=== PATIENT | female | born 1980 | race Caucasian/White ===

== ENCOUNTER 2022-02-11 18:10 | Inpatient (IN) | payer OTHER, SELFPAY ==
[~2022-02-11] VITALS: Ht 167.6 cm; Wt 136.5 kg
--- NOTE | 2022-02-11 18:12 | NUR ---
NATALIE JEREZ, VIA GURNEY TO BED 02.
--- NOTE | 2022-02-11 18:15 | NUR ---
NOHEMI SILVESTRE COLLECTED AND HANDED TO STAVE AND BOLT EQUALIZER BEDSIDE
--- NOTE | 2022-02-11 18:20 | NUR ---
LAB BEDSIDE COLLECTING BLOODWORK
[2022-02-11] MEDS ORDERED: NACL 0.9% 2,000 ML IV SCH (18:30)
[2022-02-11 18:37] VITALS: BP 64/46
--- NOTE | 2022-02-11 18:42 | NUR ---
ABG ATTEMPT X2 UNSUCCESSFUL POSSIBLY DUE TO HYPOTENSION WILL ATTEMPT AT A LATER TIME ED DR FITZPATRICK
--- NOTE | 2022-02-11 18:55 | NUR ---
41 Y/O FEMALE TRACHEA TO RA MATEO FROM [facility] [place] C/O RAPID HEART RATE X1DAY. PER EMT AND FIRE STAFF IN [facility] [place] STATED PT HAD SOME CHEST DISCOMFORT, AND LOW BLOOD PRESSURE. DENIES FEVER/CHILLS. DENIES N/V/D. PMH: ACUTE RESPIRATORY FAILURE, BIPOLAR, DM, GERD, HTN, CDIFF ALLERGIES: LATEX, RUBBER, PNC, SULFA
[2022-02-11 18:58] LABS: BASOPHILS % (AUTO) 0.1 % (0.0-2.0); HEMATOCRIT 36.1 % (36-48); HEMOGLOBIN 11.6 g/dL (12.0-16.0); LYMPHOCYTES # (AUTO) 1.2 K/uL (2.5-16.5); LYMPHOCYTES % (AUTO) 7.2 % (20.5-51.1); MEAN CORPUSCULAR HEMOGLOBIN 26 pg (27-31); MEAN CORPUSCULAR HGB CONC 32 g/dL (33-37); MEAN CORPUSCULAR VOLUME 82.1 fL (80-94); MONOCYTES # (AUTO) 0.6 K/uL (0.8-1.0); MONOCYTES % (AUTO) 3.9 % (1.7-9.3); NEUTROPHILS # (AUTO) 14.7 K/uL (1.8-7.7); NEUTROPHILS % (AUTO) 88.8 % (42.2-75.2); PLATELET COUNT (AUTO) 407 K/uL (140-450); RED CELL DISTRIBUTION WIDTH 14.3 % (11.6-13.7); WHITE BLOOD COUNT (AUTO) 16.6 K/uL (4.8-10.8)
[2022-02-11] MEDS ORDERED: METO50TE2 GT (19:03)
[2022-02-11] MEDS ORDERED: LIP80 GT (19:03)
[2022-02-11] MEDS ORDERED: ACET-2619 GT (19:03)
[2022-02-11] MEDS ORDERED: APIX5TAB GT (19:03)
[2022-02-11] MEDS ORDERED: ASPI-1205 GT (19:03)
[2022-02-11] MEDS ORDERED: FAMO-90 GT (19:03)
[2022-02-11] MEDS ORDERED: OLAN2.5T40 GT (19:03)
[2022-02-11] MEDS ORDERED: METF-1243 GT (19:03)
--- NOTE | 2022-02-11 19:03 | NUR ---
MED REC COMPLETED FOR PATIENT
--- NOTE | 2022-02-11 19:10 | NUR ---
REPORT RECEIVED FROM CLEVELAND NICHOLE. CONTINUITY OF PT CARE AT THIS TIME.
--- NOTE | 2022-02-11 19:14 | NUR ---
Pt report given to CLEVELAND SAVAGE. Transfer of care at this time.
[2022-02-11 19:23] LABS: ALBUMIN 2.3 g/dL (3.4-5.0); ANION GAP 17.5 (8-16); CARBON DIOXIDE 23.8 mmol/L (21-32); POTASSIUM 4.3 mmol/L (3.5-5.1); TOTAL BILIRUBIN 0.7 mg/dL (0.0-1.0)
[2022-02-11] MEDS: PIPERACILLIN/TAZOBACTAM 3.375 GM in DEXTROSE 5% 50 ML IV ONE ×2 (19:25→19:53)
[2022-02-11] MEDS ORDERED: VANCOMYCIN 1,000 MG in DEXTROSE 5% 250 ML IV ONE (19:25)
--- NOTE | 2022-02-11 19:39 | NUR ---
PT LAYING IN BED LOCKED IN LOWEST POSITION W X2 SIDERAILS UP FOR PT SAFETY. PT AWAKE AND ALERT GIVES THUMBS UP WHEN ASKED IF OK, PT HAS TRACH OPEN TO AIR W AEROSOL MIST W MASK AT 6L O2 SAT 99%, PT W UNSTABLE VSS ON MONITOR (ERMD AWARE), PT HAS G TUBE, 20 G TO L WRIST W NS BOLUSES RUNING, IV SITE INTACT AND PATENT. WILL CONTINUE TO MONITOR.
[2022-02-11] MEDS ORDERED: NOREPINEPHRINE 4 MG/4 ML VIAL IV ONE (19:40)
[2022-02-11] MEDS ORDERED: NOREPINEPHRINE 4 MG in DEXTROSE 5% 250 ML IV ONE (19:40)
--- NOTE | 2022-02-11 19:40 | NUR ---
NS BOLUSES STARTED BY AM NURSE, CURRENTLY 1200CC INFUSED.
[2022-02-11] MEDS ORDERED: PIPERACILLIN/TAZOBACTAM 3.375 GM VIAL IV ONE (19:50)
--- NOTE | 2022-02-11 19:50 | NUR ---
PER ERMD HOLD LEVOPHED UNTIL AFTER 2000CC BOLUSES ARE FINISHED.
[2022-02-11] MEDS ORDERED: VANCOMYCIN 1,000 MG VIAL ONE (20:03)
[2022-02-11] MEDS ORDERED: LEVOFLOXACIN 750 MG/D5W PREMIX 150 ML IV ONE (20:20)
--- NOTE | 2022-02-11 20:25 | NUR ---
CENTRAL LINE CONSENT OBTAINED FROM PT MOTHER BOLA LOCKE.
--- NOTE | 2022-02-11 20:45 | NUR ---
PT BP 105/41, PER ERMD OK TO HOLD OF ON LEVOPHED UNTIL CENTRAL LINE IS IN PLACE. CONTINUE TO MONITOR BP.
[2022-02-11] MEDS ORDERED: AZTREONAM 2,000 MG in DEXTROSE 5% 100 ML IV SCH (21:00)
--- NOTE | 2022-02-11 21:03 | NUR ---
PT REPOSITIONED FOR COMFORT.
[2022-02-11 21:07] LABS: APPEARANCE,URINE CLEAR (CLEAR); BILIRUBIN,URINE 2+ (NEGATIVE); BLOOD, URINE TRACE-I (NEGATIVE); COLOR,URINE YELLOW (YELLOW); LEUKOCYTE ESTERASE ,URINE NEGATIVE (NEGATIVE); NITRITE, URINE NEGATIVE (NEGATIVE); PH,URINE 5.5 (5.0-9.0); UGLUCOSE NEGATIVE (NEGATIVE)
[2022-02-11 21:15] LABS: WBC,URINE 0-5 /HPF (0-5)
[2022-02-11] MEDS ORDERED: LORazepam 2 MG/ML VIAL IVP STA (21:44)
[2022-02-11] MEDS ORDERED: LORazepam 2 MG/ML VIAL ONE (21:49)
[2022-02-11 22:10] LABS: PROTHROMBIN TIME 12.1 secs (10.8-13.4)
--- NOTE | 2022-02-11 22:21 | NUR ---
ERMD AT BEDSIDE FOR CENTRAL LINE.
--- NOTE | 2022-02-11 22:38 | NUR ---
R IJ CENTRAL LINE INSERTED BY GAVIN GRESHAM.
--- NOTE | 2022-02-11 22:44 | NUR ---
PER GAVIN CENTRAL LINE OK FOR USE. Addendum: 02/11/22 at 2244 by ROSA GAVIN VERIFIED CENTRAL LINE PLACEMENT.
[2022-02-11] MEDS: NACL 0.9% 1,000 ML IV SCH (22:55)
[2022-02-11] MEDS ORDERED: AZTREONAM 1,000 MG VIAL ONE (23:02)
--- NOTE | 2022-02-11 23:11 | NUR ---
ERMD SIN AWARE PT HR FLUCTUATES TO 160s PER ERMD HR OK BECAUSE IT IS SINUS TACH, NO NEW ORDERS FOR HR.
[2022-02-12] VITALS (21 sets, daily range): BP systolic 96–139; BP diastolic 50–76
--- NOTE | 2022-02-12 00:30 | NUR ---
Patient will be admitted to care of . Admited to ICU. Will go to room ICU 1. Belongings list completed. Report to CLEVELAND MOCK.
--- NOTE | 2022-02-12 00:40 | NUR ---
ADMITTED THIS 41 YEAR OLD FEMALE PATIENT FROM ER PER [facility] DUE TO HYPOTENSION. ASSISTED PATIENT IN BED 1; HOOKED TO CHIEF OF PLANNING. SCOPE SHOWS ON SINUS TACHY HR 146/MIN NO ARRHYTHMIAS SEEN. PATIENT IS AWAKE, ALERT BUT SOMEWHAT RESTLESS. WITH TRACHEOSTOMY IN PLACE TO 28% COOL AEROSOL SO2 99%. IVF IN PROGRESS NORMAL SALINE AT 125 ML/HR AND ON LEVOPHED DRIP AT 4 MCG/MIN VIA CENTRAL LINE TO RIGHT INTERNAL JUGULAR; PATENT AND INTACT. ABDOMEN IS SOFT, VERY OBESE, ACTIVE BOWEL SOUNDS. NOTED WITH REDNESS AND SLIGHT EXCORIATED SKIN ON BOTH GROIN.
--- NOTE | 2022-02-12 01:50 | NUR ---
WITH PERSISTENT NON PRODUCTIVE COUGH NOTED AND TEMP 100.9F COLD SPONGE DONE; REFERRED TO DR. TAM; WITH NEW ORDERS, CARRIED OUT.
--- NOTE | 2022-02-12 04:30 | NUR ---
TEMP GOES UP TO 101.5; CONTINOUS COLD SPONGE DONE; REFERRED AGAIN TO DR. TAM; WITH NEW ORDER, CARRIED OUT.
[2022-02-12] MEDS ORDERED: ALBUTEROL SULFATE/IPRATROPIU 3 ML SOL IH PRN (04:50)
[2022-02-12] MEDS: NACL 0.9% 1,000 ML IV SCH ×3 (05:00→21:00)
[2022-02-12 05:42] LABS: HEMATOCRIT 32.2 % (36-48); HEMOGLOBIN 10.4 g/dL (12.0-16.0); MEAN CORPUSCULAR HEMOGLOBIN 27 pg (27-31); MEAN CORPUSCULAR HGB CONC 32 g/dL (33-37); MEAN CORPUSCULAR VOLUME 82.2 fL (80-94); PLATELET COUNT (AUTO) 369 K/uL (140-450); RED BLOOD CELL COUNT(AUTO) 3.92 MIL/uL (4.20-5.40); RED CELL DISTRIBUTION WIDTH 14.4 % (11.6-13.7); WHITE BLOOD COUNT (AUTO) 13.5 K/uL (4.8-10.8)
[2022-02-12 06:13] LABS: ANION GAP 14.6 (8-16); CARBON DIOXIDE 24.5 mmol/L (21-32); CREATININE 1.5 mg/dL (0.6-1.3); POTASSIUM 4.1 mmol/L (3.5-5.1)
--- NOTE | 2022-02-12 06:30 | NUR ---
LEVOPHED DRIP TAPER AND HOLD PER PROTOCOL.;V/S CONTINUE MONITORING.
[2022-02-12] MEDS ORDERED: ACETAMINOPHEN 325 MG TAB PO PRN ×2 (06:40→09:10)
[2022-02-12] MEDS ORDERED: ACETAMINOPHEN 325 MG TAB ONE (06:43)
--- NOTE | 2022-02-12 07:30 | NUR ---
RECEIVED BEDSIDE REPORT FROM LIBRARY DIRECTOR NURSE, PT RESTING, NO DISTRESS NOTED, AWAKE, APHASIC, UNABLE TO LET NEEDS KNOWN, PT CONFUSED, RESTRAINTS TO RIGHT ARM, NO S/S OF INJURY, PT TRIES TO PULL AND KICK. CENTRAL LINE TO RIGHT IJ TRIPLE LUMEN PATENT INTACT, INFUSING NS @ 125ML/HR, INFUSING WELL, PT ON TRACH TO TBAR WITH MIST 6LPMN O2. PT SATURATING @ 100%, NO SOB NOTED, LUNG SOUNDS DIMINISHED. NOTED PT OCCASIONALLY COUGH WITH SCANT SPUTUM. IV TO LEFT HAND 20G PATENT INTACT, SL. GT IN PLACE, NO RESIDUAL NOTED, CLAMPED PER NPO ORDER. EXTERNAL URINARY DEVICE IN PLACE. NOTED LEAKING THROUGH THE SIDES, WILL REPLACE AND CHANGE PT. INITIAL ASSESSMENT DONE, ALL SAFETY PRECAUTION MET, CALL LIGHT WITHIN REACH, WILL CONTINUE TO MONITOR.
--- NOTE | 2022-02-12 07:30 | NUR ---
DR MOLINA AT BEDSIDE. EVALUATING AND ASSESSING PT.
--- NOTE | 2022-02-12 07:34 | NUR ---
TURNED AND REPOSITIONED PATIENT; V/S MONITORED CLOSELY. Addendum: 02/12/22 at 0736 by Anay Luna RN TIME CHANGED FROM 0735 TO 0300
--- NOTE | 2022-02-12 08:05 | NUR ---
SPUTUM COLLECTED BY RT, SENT TO LAB.
--- NOTE | 2022-02-12 08:06 | NUR ---
RECEIVED ON A COOL AEROSOL AT 28%/6 LPM FUNCTIONING WELL TO AN INLINE SUCTION CATHETER/PORTEX #7 TRACHEOSTOMY TUBE GOOD CHEST RISE DEEP TRACHEAL SUCTION FOR MODERATE THIN YELLOW/GREEN SECRETIONS AIRWAY PATENT SPUTUM SPECIMEN COLLECTED VIA MUCOUS TRAP FORWARDED TO LAB
[2022-02-12] MEDS: LEVOFLOXACIN 500 MG/D5W PREMIX 100 ML IV SCH (08:39)
[2022-02-12] MEDS ORDERED: VANCOMYCIN PER PHARMACY MC PRN (09:05)
[2022-02-12] MEDS ORDERED: SODIUM PHOS / POTASSIUM PHOS 1 PKT PDR PO PRN (09:10)
[2022-02-12] MEDS ORDERED: POTASSIUM CHLORIDE 40 MEQ, LIDOCAINE MPF 1% 25 MG in NACL 0.9% 250 ML IV PRN (09:10)
[2022-02-12] MEDS ORDERED: ONDANSETRON 4 MG/2 ML VIAL IM/IVP PRN (09:10)
[2022-02-12] MEDS ORDERED: MAGNESIUM OXIDE 400 MG TAB GT PRN (09:10)
[2022-02-12] MEDS ORDERED: MORPHINE SULFATE 2 MG/ML SYR IVP PRN (09:10)
[2022-02-12] MEDS ORDERED: HYDROcodone/APAP 5/325 MG 1 TAB TAB PO PRN (09:10)
[2022-02-12] MEDS ORDERED: DOCUSATE 100 MG/10 ML UDC PO PRN (09:15)
[2022-02-12 10:08] LABS: BASOPHILS % (MANUAL) 0 % (0-2); BLASTS, MANUAL % 0 % (0-0); EOSINOPHILS % (MANUAL) 0 % (0-4); LYMPHOCYTES % (MANUAL) 17 % (20-46); METAMYELOCYTES % 1 % (0-0); MONOCYTES % (MANUAL) 6 % (5-12); MYELOCYTES % 0 % (0-0); OTHER CELLS,MANUAL % 0 (0-0); PROMYELOCYTES % 0 % (0-0)
--- NOTE | 2022-02-12 10:20 | NUR ---
DR US AT BEDSIDE ASSESSING PT.
--- NOTE | 2022-02-12 10:23 | NUR ---
SPOKE TO DR US REGARDING PT TEMPERATURE, HAS NOT BEEN DOWN SINCE MORNING, ENTEROSTOMAL THERAPY NURSE NURSE ALREADY GIVEN 1 DOSE OF PO TYLENOL, PER DR TO GIVE 1 DOSE OF IV TYLENOL, WILL CONTINUE WITH ORDERS.
[2022-02-12] MEDS: VANCOMYCIN 750 MG in DEXTROSE 5% 250 ML IV SCH ×2 (10:27→22:36)
[2022-02-12] MEDS ORDERED: ACETAMINOPHEN 100 ML IV SCH (11:00)
--- NOTE | 2022-02-12 11:21 | NUR ---
DC PLANNIN YRS OLD FEMALE PATIENT WAS ADMITTED FROM [facility] [place] WITH A DX OF SEPTIC SHOCK. PATIENT HAS A HX OF CVA. CXR SHOWED LOW LUNG VOLUME RAPID COVID TEST NEGATIVE WBC 16.6 LA 2.5. ON TYLENOL(OFIRMEV) IV , ADMINISTERED IVF, IV ABX VANCOMYCIN AND LEVAQUIN. CONSULTED WITH PULMO AND NEPHRO. DC PLAN TO RETURN TO [facility] WHEN STABLE CM TO FOLLOW Addendum: 02/13/22 at 1457 by Andreia Cornell RN DC PLANNING: SEEN DR RODRIGUEZ JEWEL BEARING MAKER RENAL FUNCTION MUCH IMPROVED GOOD UOP. ANABELA IRVIN CONTINUE IV ABX DC PLAN AWAITING FOR URINE CULTURE. CM TO FOLLOW Addendum: 02/14/22 at 1430 by Andreia Cornell RN DC PLANNING: PER GI REMOVED G-TUBE AND ALLOW FOR HEALING. START TPN. REMAINS CONTINUE VENT SUPPORT HAD FEVER 101.5, CONTINUE MEROPENEM AND VANCO ABX . GI, PULMO AND ID FOLLOWING. DC PLAN TO RETURN TO [facility] WHEN STABLE. CM TO FOLLOW Addendum: 02/17/22 at 1236 by Andreia Cornell RN DC PLANNING: CALLED [facility] SPOKE WITH BRENDAN NOTIFIED HER THAT PATENT NEEDS TPN FOR 2 WEEKS ,PER BRENDAN [facility] CAN CONTINUE TPN. CALLED DR WILSON DISCUSSED THAT TO SEND PATIENT WITH TPN AND WHEN THE WOUND HEELS PATIENT CAN COME OUT PATIENT FOR INSERTION OF G-TUBE. DR WILSON DISCUSSED WITH DR WEST AND PATIENT WILL BE DC TO [facility] WITH TPN. PATIENT CAN GO TO ROOM 20A UNDER THE CARE OF DR JIMENEZ. # TO GIVE REPORT [phone] ARRANGED TRANSPORT WITH [facility] , LOG TUMBLER TIME 3 PM. NOTIFIED JUAN DANIEL GUTHRIE. CM TO FOLLOW
[2022-02-12 11:37] LABS: MAGNESIUM 1.8 mg/dL (1.8-2.4); PHOSPHORUS 3.5 mg/dL (2.5-4.9)
--- NOTE | 2022-02-12 12:29 | NUR ---
SPOKE TO DR US REGARDING PT TUBE FEEDING, PER DR ROGERS TO CONTINUE TUBE FEEDING SAME TYPE AND RATE FROM SENIOR CARE. TUBE FEEDING OSMOLITE 1.5 RUNNING @ 75ML/HR, WITH H2O FLUSH 250ML Q6H. WILL CONTINUE WITH ORDERS.
--- NOTE | 2022-02-12 15:20 | NUR ---
PT TEMPERATURE 100.4, TYLENOL GIVEN PER DR ORDER, NO DISTRESS NOTED, WILL CONTINUE TO MONITOR.
--- NOTE | 2022-02-12 15:30 | NUR ---
TUBE FEEDING STARTED @ 10ML/HR, WILL CONTINUE TO MONITOR.
[2022-02-12] MEDS ORDERED: INSULIN LISPRO SLIDING SCALE 100 UNITS/ML VIAL SUBQ PRN (16:00)
[2022-02-12] MEDS ORDERED: DEXTROSE 50% 50 ML SYR IVP PRN (16:00)
[2022-02-12] MEDS ORDERED: BLOOD GLUCOSE MONITORING 1 DEV DEV FS SCH (16:30)
[2022-02-12] MEDS: BLOOD GLUCOSE MONITORING 1 DEV DEV FS SCH ×2 (17:17→18:00)
--- NOTE | 2022-02-12 17:50 | NUR ---
INFORMED DR US REGARDING RESULT OF KUB, PER TO TAKE OUT THE GT, LET THE SITE HEAL, DR WILL COME TOMORROW TO EVALUATE PT. ALSO NOTIFIED PATIENT FAMILY WANTS TO TALK TO , PER WILL FOLLOW UP. WILL CONTINUE WITH ORDERS.
--- NOTE | 2022-02-12 19:19 | NUR ---
ENDORSED PT TO BUSINESS PROCESS ANALYST NURSE FOR CONTINUOUS OF CARE.
--- NOTE | 2022-02-12 19:25 | NUR ---
RECEIVED REPORT FROM DAYSHIFT RN FOR CONTINUITY OF CARE. PT RESTING IN BED WITH EYES OPEN, UNABLE TO LET NEEDS KNOWN, APPEARS CONFUSED. RESTRAINT TO RIGHT ARM, WITH NO S/S OF INJURY, PT ATTEMPTS TO PULL AND KICK WHEN INTERACTING WITH HER. RIJ CENTRAL LINE ALREADY IN PLACE, PATENT AND INTACT, INFUSING NS @125 ML/HR. IV 20G TO L HAND;PATENT, INTACT, AND SALINE LOCKED. PT TRACH TO TBAR 02 MIST 6L, WITH SATURATION OF 96%. LUNG SOUNDS DIMINISHED, WITH COUGH PRESENT. GT IN PLACE AND CLAMPED. PURE WICK IN PLACE AND CONNECTED TO SUCTION. INITIAL ASSESSMENT COMPLETED. SAFETY PRECAUTIONS IN PLACE. BED IN LOWEST POSITION WITH CALL LIGHT WITHIN REACH. WILL CONTINUE TO MONITOR.
[2022-02-12] MEDS: OLANZapine 2.5 MG TAB GT SCH (20:51)
[2022-02-12] MEDS: CLINDAMYCIN 600 MG in DEXTROSE 5% 50 ML IV SCH (20:51)
[2022-02-12] MEDS: APIXABAN 2.5 MG TAB GT SCH (20:51)
[2022-02-12] MEDS: PANTOPRAZOLE 40 MG INJ VIAL IVP SCH (20:51)
[2022-02-12] MEDS: ATORVASTATIN 80 MG TAB GT SCH (20:51)
[2022-02-12] MEDS ORDERED: FAMOTIDINE 20 MG TAB GT SCH (21:00)
--- NOTE | 2022-02-12 21:30 | NUR ---
TEMP OF 101.9 OBSERVED. COOLING MEASURES IMPLEMENTED; ICE TO HEAD, UNDERARMS, AND JAMIL AREA. WILL CONTINUE TO MONITOR.
[2022-02-12] MEDS: ACETAMINOPHEN 650 MG SUPP RC PRN (23:14)
--- NOTE | 2022-02-12 23:15 | NUR ---
TEMP RE-ASSESSED. STILL ABOVE 101.4. PRN SUPP TYLENOL ADMINISTERED ORDER. CONTINUING WITH COOLING MEASURES. WILL CONTINUE TO MONITOR.
[2022-02-13] VITALS (24 sets, daily range): BP systolic 83–135; BP diastolic 46–84
--- NOTE | 2022-02-13 03:32 | NUR ---
AM CARE, JAMIL CARE, ORAL CARE PROVIDED. PT TURNED AND REPOSITIONED.
[2022-02-13] MEDS: CLINDAMYCIN 600 MG in DEXTROSE 5% 50 ML IV SCH ×2 (04:55→13:17)
[2022-02-13] MEDS: NACL 0.9% 1,000 ML IV SCH (05:28)
[2022-02-13] MEDS: BLOOD GLUCOSE MONITORING 1 DEV DEV FS SCH ×5 (06:00→23:54)
--- NOTE | 2022-02-13 06:24 | NUR ---
BS READING OF 54. PRN ABBOJECT ADMINISTERED ORDERED. WILL CONTINUE TO MONITOR.
[2022-02-13 06:31] LABS: BASOPHILS % (AUTO) 0.2 % (0.0-2.0); EOSINOPHILS # (AUTO) 0.1 K/uL (0-0.4); EOSINOPHILS % (AUTO) 0.8 % (0.0-4.0); HEMATOCRIT 29.2 % (36-48); HEMOGLOBIN 9.5 g/dL (12.0-16.0); LYMPHOCYTES # (AUTO) 1.1 K/uL (2.5-16.5); LYMPHOCYTES % (AUTO) 14.3 % (20.5-51.1); MEAN CORPUSCULAR HEMOGLOBIN 27 pg (27-31); MEAN CORPUSCULAR HGB CONC 33 g/dL (33-37); MEAN CORPUSCULAR VOLUME 81.8 fL (80-94); MONOCYTES # (AUTO) 0.4 K/uL (0.8-1.0); MONOCYTES % (AUTO) 5.2 % (1.7-9.3); NEUTROPHILS # (AUTO) 6.2 K/uL (1.8-7.7); NEUTROPHILS % (AUTO) 79.5 % (42.2-75.2); PLATELET COUNT (AUTO) 314 K/uL (140-450); RED BLOOD CELL COUNT(AUTO) 3.57 MIL/uL (4.20-5.40); RED CELL DISTRIBUTION WIDTH 14.6 % (11.6-13.7); WHITE BLOOD COUNT (AUTO) 7.8 K/uL (4.8-10.8)
[2022-02-13 06:41] LABS: ANION GAP 12.2 (8-16); CARBON DIOXIDE 24.7 mmol/L (21-32); POTASSIUM 3.9 mmol/L (3.5-5.1)
[2022-02-13] MEDS: ACETAMINOPHEN 650 MG SUPP RC PRN (06:55)
--- NOTE | 2022-02-13 06:55 | NUR ---
PT TEMP RE-ASSESSED AT 101.6. PRN SUPP TYLENOL ADMINISTERED ORDERED. PT BLOOD SUGAR RE-ASSESSED, NOW AT 98.
--- NOTE | 2022-02-13 07:14 | NUR ---
GAVE REPORT AT BEDSIDE TODAY SHIFT RN FOR CONTINUITY OF CARE
--- NOTE | 2022-02-13 07:15 | NUR ---
RECEIVED BEDSIDE REPORT FROM SPECIAL EDUCATION PROFESSIONAL NURSE NIA RN. PT SLEEPING, NO DISTRESS NOTED. PT ON TRACH TO TBAR ON 6LPM O2 WITH MIST. CENTRAL LINE TO R IJ TRIPLE LUMEN, PATENT INTACT, INFUSING NS @ 125ML/HR, INFUSING WELL, IV TO LEFT HAND 20G PATENT INTACT, SL. GT IN PLACE, CLAMPED PER EXTERNAL FEMALE URINE DEVICE IN PLACE. INITIAL ASSESSMENT DONE, ALL SAFETY PRECAUTION MET, CALL LIGHT WITHIN REACH, WILL CONTINUE TO MONITOR.
--- NOTE | 2022-02-13 07:59 | NUR ---
PATIENT HAS BEEN SCREENED AND CATEGORIZED HIGH NUTRITION RISK. PATIENT WILL BE SEEN WITHIN 1-2 DAYS OF ADMISSION. 02/13/22 RECEIVED CONSULT AND REFERRAL FOR TUBE FEEDING AND DYSPHAGIA CAROLYN BL[address]
[2022-02-13] MEDS: ASPIRIN 325 MG TAB GT SCH (08:18)
[2022-02-13] MEDS: OLANZapine 2.5 MG TAB GT SCH ×2 (08:19→21:00)
[2022-02-13] MEDS: LEVOFLOXACIN 500 MG/D5W PREMIX 100 ML IV SCH (08:19)
[2022-02-13] MEDS: APIXABAN 2.5 MG TAB GT SCH ×2 (08:20→21:00)
[2022-02-13] MEDS: PANTOPRAZOLE 40 MG INJ VIAL IVP SCH ×2 (08:20→21:25)
[2022-02-13] MEDS: DEXT 5% /NACL 0.9% 1,000 ML IV SCH ×2 (09:21→21:22)
--- NOTE | 2022-02-13 09:21 | NUR ---
MEDICATION ADMINISTERED PT TOLERATED WELL, NO DISTRESS NOTED, WILL CONTINUE TO MONITOR.
[2022-02-13] MEDS: ACETAMINOPHEN 100 ML IV PRN ×3 (10:05→23:53)
[2022-02-13] MEDS: NOREPINEPHRINE 8 MG in DEXTROSE 5% 250 ML IV PRN (10:46)
[2022-02-13] MEDS: VANCOMYCIN 1,000 MG in DEXTROSE 5% 250 ML IV SCH ×2 (10:53→23:18)
--- NOTE | 2022-02-13 10:53 | NUR ---
VANCOMYCIN THROUGH CAME BACK, PHARMACY CHANGED DOSE FOR VANCO, MEDICATION ADMINISTERED, PT TOLERATED WELL, WILL CONTINUE TO MONITOR.
--- NOTE | 2022-02-13 11:04 | NUR ---
DR US AT BEDSIDE EVALUATING PT, PER TO ORDER CONSULT FOR DR. WILSON FOR THE GT.
--- NOTE | 2022-02-13 13:49 | NUR ---
PT RESTLESS, WHEN ASKED IF PT IS HAVING PAIN, PT STATED YES, FLACC -8, MEDICATION PER DR ORDER GIVEN, PT TOLERATED WELL, WILL CONTINUE TO MONITOR.
--- NOTE | 2022-02-13 14:20 | NUR ---
02/13/22 RD INITIAL ASSESSMENT COMPLETED PLEASE REFER TO NUTRITION ASSESSMENT UNDER CARE ACTIVITY FOR ESTIMATED NUTRITIONAL NEEDS. 1. WHEN/IF MEDICALLY APPROPRIATE, RECOMMEND VITAL WITH A GOAL RATE OF 55 ML/HR -FWF: 100 ML Q6H OR PER MD -START AT 10 ML/HR AND INCREASE TOLERATED -WILL PROVIDE 1584 KCAL AND 99 GM PROTEIN, MEETING 90% OF ESTIMATED KCAL AND 100% OF ESTIMATED PROTEIN NEEDS; ADEQUATE 2. MONITOR GASTRIC RESIDUALS AND NUTRITION-RELATED LAB VALUES 3. RD TO FOLLOW-UP 2-3 DAYS, HIGH RISK CAROLYN BLAS RD
--- NOTE | 2022-02-13 14:30 | NUR ---
DR. LOVE RETURN CALL , WILL SEE THE PATIENT TOMORROW .
--- NOTE | 2022-02-13 15:48 | NUR ---
DR MINER AT BEDSIDE EVALUATING PT, PER HE MADE CHANGES TO THE ANTIBIOTICS, ALSO TO ORDER CT ABD PELVIS TO CONFIRM THE GT PLACEMENT. WILL CONTINUE WITH ORDER.
--- NOTE | 2022-02-13 18:00 | NUR ---
NOTIFIED DR US REGARDING THE CT RESULT THAT THE GT IS NO LONGER IN PLACE, WILL CONTINUE TO MONITOR.
--- NOTE | 2022-02-13 18:10 | NUR ---
DR. WILSON AT BEDSIDE, PULLED OUT GT, PER DR TO START TPN AND CHANGE GAUZE ON THE GT SITE ONCE PER SHIFT, WILL CONTINUE WITH ORDERS.
[2022-02-13] MEDS ORDERED: TPN PER PHARMACY MC PRN ×2 (18:25→18:30)
--- NOTE | 2022-02-13 19:18 | NUR ---
ENDORSED PT TO WELFARE ELIGIBILITY WORKER NURSE FOR CONTINUOUS OF CARE.
[2022-02-13] MEDS: ATORVASTATIN 80 MG TAB GT SCH (21:00)
[2022-02-13] MEDS: MEROPENEM 500 MG in NACL 0.9% 50 ML IV SCH (21:24)
--- NOTE | 2022-02-13 22:45 | NUR ---
RECEIVED PATIENT FROM CLEVELAND LYN FOR CONTINUITY OF CARE.
[2022-02-14] VITALS (23 sets, daily range): BP systolic 102–146; BP diastolic 48–93
--- NOTE | 2022-02-14 | NUR ---
FEBRILE 102F RECTALLY; COOLING BLANKET APPLIED; TYLENOL IV GIVEN.
[2022-02-14] MEDS: GAUZE TP SCH ×2 (01:00→13:11)
--- NOTE | 2022-02-14 02:00 | NUR ---
V/S MONITORED CLOSELY; LEVOPHED DRIP REGULATED PER PROTOCOL.
[2022-02-14] MEDS: NOREPINEPHRINE 8 MG in DEXTROSE 5% 250 ML IV PRN (04:30)
--- NOTE | 2022-02-14 04:30 | NUR ---
MORNING BED BATH DONE; KEPT CLEAN AND COMFORTABLE.
[2022-02-14] MEDS: MEROPENEM 500 MG in NACL 0.9% 50 ML IV SCH ×3 (05:00→20:43)
[2022-02-14] MEDS: DEXT 5% /NACL 0.9% 1,000 ML IV SCH (05:30)
[2022-02-14 05:51] LABS: BASOPHILS % (AUTO) 0.3 % (0.0-2.0); EOSINOPHILS # (AUTO) 0.2 K/uL (0-0.4); EOSINOPHILS % (AUTO) 2.3 % (0.0-4.0); HEMATOCRIT 28.9 % (36-48); HEMOGLOBIN 9.6 g/dL (12.0-16.0); LYMPHOCYTES # (AUTO) 1.5 K/uL (2.5-16.5); LYMPHOCYTES % (AUTO) 14.6 % (20.5-51.1); MEAN CORPUSCULAR HEMOGLOBIN 27 pg (27-31); MEAN CORPUSCULAR HGB CONC 33 g/dL (33-37); MONOCYTES # (AUTO) 0.6 K/uL (0.8-1.0); MONOCYTES % (AUTO) 5.8 % (1.7-9.3); NEUTROPHILS # (AUTO) 7.8 K/uL (1.8-7.7); PLATELET COUNT (AUTO) 391 K/uL (140-450); RED BLOOD CELL COUNT(AUTO) 3.53 MIL/uL (4.20-5.40); RED CELL DISTRIBUTION WIDTH 14.8 % (11.6-13.7); WHITE BLOOD COUNT (AUTO) 10.1 K/uL (4.8-10.8)
[2022-02-14 05:52] LABS: MAGNESIUM 1.5 mg/dL (1.8-2.4); PHOSPHORUS 4.3 mg/dL (2.5-4.9)
[2022-02-14] MEDS: BLOOD GLUCOSE MONITORING 1 DEV DEV FS SCH ×3 (06:08→18:54)
[2022-02-14 06:27] LABS: ANION GAP 11.8 (8-16); CARBON DIOXIDE 24.6 mmol/L (21-32); CREATININE 0.9 mg/dL (0.6-1.3); POTASSIUM 3.4 mmol/L (3.5-5.1)
--- NOTE | 2022-02-14 07:20 | NUR ---
Received report from Anay RN and assumed care of patient. Patient resting, cooling mat in place, afebrile. Patient on Levophed 6 mcg/min. D5NS @ 80 ml/hr infusing to triple lumen central line. Will follow plan of care.
--- NOTE | 2022-02-14 07:25 | NUR ---
ENDORSED TO RN CARMEN FOR CONTINUITY OF CARE.
[2022-02-14] MEDS ORDERED: INSULIN LISPRO SLIDING SCALE 100 UNITS/ML VIAL SUBQ PRN (08:35)
--- NOTE | 2022-02-14 08:59 | NUR ---
Dr. Vincent advised the patient has PO meds ordered, but G tube was discontinued. I requested change of route or dc as appropriate and advised him of all the medications. MD responded understanding.
[2022-02-14] MEDS: ASPIRIN 325 MG TAB GT SCH (09:00)
[2022-02-14] MEDS: OLANZapine 2.5 MG TAB GT SCH ×2 (09:00→21:00)
[2022-02-14] MEDS: APIXABAN 2.5 MG TAB GT SCH ×2 (09:00→21:00)
[2022-02-14] MEDS: PANTOPRAZOLE 40 MG INJ VIAL IVP SCH ×2 (09:07→20:43)
--- NOTE | 2022-02-14 10:30 | NUR ---
Dr. Cox at bedside to see the patient.
[2022-02-14] MEDS ORDERED: KCL 20 MEQ/WATER INJ PREMIX 100 ML IV SCH (11:00)
[2022-02-14] MEDS: ACETAMINOPHEN 100 ML IV PRN ×2 (11:00→16:51)
[2022-02-14] MEDS ORDERED: MAG SULF 2000 MG/WATER PREMIX 50 ML IV SCH (11:00)
[2022-02-14] MEDS: VANCOMYCIN 1,000 MG in DEXTROSE 5% 250 ML IV SCH (11:36)
[2022-02-14] MEDS ORDERED: BLOOD GLUCOSE MONITORING 1 DEV DEV MC SCH (12:00)
--- NOTE | 2022-02-14 13:10 | NUR ---
PT. WITH LOW PRABHU SCALE AT MODERATE TO HIGH RISK, CONTINUE TO FOLLOW PRESSURE INJURY PREVENTION INTERVENTIONS. -POSITIONING: TURN AND REPOSITION PATIENT Q 2H OR SOONER USE PILLOWS TO KEEP BONY PROMINENCES FROM DIRECT CONTACT WITH SURFACES USE REPOSITIONING WEDGES TO PROVIDE 30-DEGREE ANGLE FOR SIDE LYING POSITIONS OFFLOADING OR FOAM DRESSING TO ALL TUBING TO PREVENT MEDICAL DEVICES RELATED PRESSURE INJURY -RE-EVALUATING AND MANAGING INCONTINENCE MONITOR SKIN CONDITION DURING POSITION CHANGE DO NOT MASSAGE REDNESS, BONY PROMINENCES, DO NOT USE DONUT-TYPE DEVICES FREQUENT JAMIL-CARE AND PROVIDE BARRIER CREAMS PRN IF SOILING MOISTURE CONTROL BY OFFER BED REVELES/URINAL /ABSORBENT PAD TO WICK AND HOLD MOISTURE KEEP SKIN DRY AND PROTECT FROM FRICTION -MANAGE FRICTION/SHEAR/MOBILITY KEEP HOB AT THE LOWEST LEVEL OF ELEVATION NO MORE THAN 30 DEGREE UNLESS OTHERWISE CONTRAINDICATED USE LIFT SHEET OR TRANSFER DEVICE TO MOVE PATIENT AND PREVENT LATERAL SHEER. PROTECT HEELS, ELBOWS BONY PROMINENCES WITH SKIN BERRIES OR FOAM DRESSING IF EXPOSED TO FRICTION OFFLOAD BILATERAL HEELS BY PLACING PILLOWS UNDER CALVES AT ALL TIMES, UNLESS OTHERWISE CONTRAINDICATED -PRESSURE REDISTRIBUTION SURFACE THERAPY BELL ISOFLEX MATTRESS -NUTRITION: PLEASE FOLLOW RD RECOMMENDATIONS AND OFFER NUTRITION SUPPLEMENTS IF ORDERED. PLEASE CONTACT WOUND CARE NURSE FOR ANY QUESTION AND CHANGE OF WOUND CONDITION.
--- NOTE | 2022-02-14 19:10 | NUR ---
Report endorsed to Mya GUTHRIE to transfer care of patient and end my care and shift. Patient resting comfortably, sinus tach at 107, BP maintaining above 100 with Levo at 6. No signs of acute distress noted.
--- NOTE | 2022-02-14 19:10 | NUR ---
RECEIVED BEDSIDE REPORT FROM DAY SHIFT, ASSUMED CARE. PT IN BED RESTING COMFORTABLY IN NO APPARENT ACUTE DISTRESS, TRACH TO T PIECE AT 6 L/MIN FIO2 28, O2 SAT 96%. EVEN BILATERAL BREATHS. PT ON LEVOPHED AT 5 MCG/MIN AND D5 1/2 NS AT 100 ML/HR VIA RIGHT CENTRAL IJ TLC. PURE WICK IN PLACE. ALL SAFETY MEASURES IN PLACE, WILL CONTINUE TO CLOSELY MONITOR AND FOLLOW POC. Addendum: 02/14/22 at 2221 by Mya Gonzalez RN FLUID RUNNING D5 0.9 NS AT 80 ML/HR.
--- NOTE | 2022-02-14 19:29 | NUR ---
Report endorsed to Amaya GUTHRIE to transfer care of patient and end my care and shift. Patient resting comfortably, breathing even and unlabored, skin warm and dry, sinus carmencita on the monitor SBP above 110. No signs of acute distress noted. Addendum: 02/14/22 at 1933 by Jaymie Sharif RN Please disregard note above, entered in error. YT
--- NOTE | 2022-02-14 19:51 | NUR ---
PT PRESENTS LAYING IN BED ON COOL AEROSOL MIST AT 28% FIO2 6LPM SATING 100%. ANTERIOR AUSCULTATIONS REVEALED COARSE CRACKLES AT APICES CLEAR/DIMINISHED BASES, DEEP TRACHEAL SXN FOR SM PALE/YELLOW THICK SECRETIONS. NEW H2O WAS PLACED ON COOL AEROSOL SET UP. NO SIGNS OF RESPIRATORY DISTRESS AT THIS TIME. WILL CONTINUE TO MONITOR.
[2022-02-14] MEDS: AMINO ACIDS IV SCH ×4 (20:00)
[2022-02-14] MEDS: MULTIVITAMIN IV SCH ×4 (20:00)
[2022-02-14] MEDS: [UNRECOGNIZED DRUG - OTHER] IV SCH ×4 (20:00)
[2022-02-14] MEDS: DEXTROSE IV SCH ×4 (20:00)
--- NOTE | 2022-02-14 20:30 | NUR ---
MESSAGED DR. ALEMAN REGARDING SCHEDULED GTUBE MEDICATIONS AND NOTIFIED PT HAD GTUBE TAKEN OFF. PER DR. ALEMAN'S ORDERS, HOLD OF ON MEDICATIONS AND WILL PUT IN A NEW ORDER FOR LOVENOX.
--- NOTE | 2022-02-14 20:49 | NUR ---
phone call from pharmacist Erica, she was asking it pt is being treated for afib?dvt? she said to change the lovenox dose to 40mg subq daily, bid writer informed her that md will be contacted regarding the matter.Pharmacist made aware that pt is obese.md order per pharmacist is 1mg/kg q12h.awaiting reply from dr Rodriguez
[2022-02-14] MEDS ORDERED: LOVENOX 1MG/KG Q12H SUBQ SCH (21:00)
[2022-02-14] MEDS: ATORVASTATIN 80 MG TAB GT SCH (21:00)
[2022-02-14] MEDS: ACETAMINOPHEN 650 MG SUPP RC PRN (22:00)
--- NOTE | 2022-02-14 22:00 | NUR ---
PT WITH RECTAL TEMP OF 100.6, ADMINISTERED TYLENOL SUPPOSITORY PER PRN ORDERS. PT IN NO APPARENT ACUTE DISTRESS. WILL CONTINUE TO CLOSELY MONITOR AND FOLLOW POC. Addendum: 02/15/22 at 0310 by Mya Gonzalez RN RENDERED CONTINUOUS COOLING MEASURES.
[2022-02-15] VITALS (13 sets, daily range): BP systolic 97–132; BP diastolic 54–104
[2022-02-15] MEDS: BLOOD GLUCOSE MONITORING 1 DEV DEV FS SCH ×4 (00:13→19:00)
[2022-02-15] MEDS: GAUZE TP SCH ×2 (01:01→13:04)
--- NOTE | 2022-02-15 02:00 | NUR ---
PT SLEEPING COMFORTABLY IN BED IN NO APPARENT ACUTE DISTRESS. O2 SAT 100% ON TRACH TO T-PIECE AT 6 L/MIN FIO2 28% RECTAL TEMP 101.0, WILL CONTINUE TO CLOSELY MONITOR AND ADMINISTER PRN MEDICATIONS PER ORDERS. Addendum: 02/15/22 at 0311 by Mya Gonzalez RN PT ON CONTINUOUS COOLING MEASURES.
[2022-02-15] MEDS: ACETAMINOPHEN 100 ML IV PRN ×2 (03:54→13:05)
--- NOTE | 2022-02-15 04:00 | NUR ---
ADMINISTERED IV TYLENOL PER PRN ORDERS FOR ELEVATED TEMPERATURE. PT IN NO ACUTE DISTRESS, CONTINUES SLEEPING COMFORTABLY ON TRACH WITH 02 SAT 100%. ALL SAFETY MEASURES IN PLACE, WILL CONTINUE TO CLOSELY MONITOR AND FOLLOW POC.
[2022-02-15] MEDS: MEROPENEM 500 MG in NACL 0.9% 50 ML IV SCH ×3 (04:39→22:14)
[2022-02-15 05:13] LABS: ANION GAP 9.4 (8-16); CARBON DIOXIDE 25.8 mmol/L (21-32); CREATININE 0.8 mg/dL (0.6-1.3); POTASSIUM 3.2 mmol/L (3.5-5.1)
[2022-02-15 05:20] LABS: ALBUMIN 1.4 g/dL (3.4-5.0); BILIRUBIN,DIRECT 0.4 mg/dL (0.0-0.3); MAGNESIUM 1.8 mg/dL (1.8-2.4); PHOSPHORUS 3.7 mg/dL (2.5-4.9); TOTAL BILIRUBIN 0.9 mg/dL (0.0-1.0)
[2022-02-15 05:29] LABS: BASOPHILS % (AUTO) 0.2 % (0.0-2.0); EOSINOPHILS # (AUTO) 0.2 K/uL (0-0.4); HEMATOCRIT 26.8 % (36-48); HEMOGLOBIN 8.8 g/dL (12.0-16.0); LYMPHOCYTES # (AUTO) 1.2 K/uL (2.5-16.5); LYMPHOCYTES % (AUTO) 16.2 % (20.5-51.1); MEAN CORPUSCULAR HEMOGLOBIN 27 pg (27-31); MEAN CORPUSCULAR HGB CONC 33 g/dL (33-37); MEAN CORPUSCULAR VOLUME 81.3 fL (80-94); MONOCYTES # (AUTO) 0.6 K/uL (0.8-1.0); MONOCYTES % (AUTO) 7.5 % (1.7-9.3); NEUTROPHILS # (AUTO) 5.6 K/uL (1.8-7.7); NEUTROPHILS % (AUTO) 73.1 % (42.2-75.2); PLATELET COUNT (AUTO) 347 K/uL (140-450); RED CELL DISTRIBUTION WIDTH 15.1 % (11.6-13.7); WHITE BLOOD COUNT (AUTO) 7.6 K/uL (4.8-10.8)
--- NOTE | 2022-02-15 06:27 | NUR ---
PT SLEEPING COMFORTABLY WITH EYES CLOSED IN NO ACUTE DISTRESS. CURRENT RECTAL TEMP 99.6. CONTINUES TRACH TO TPIECE AT 6 L/MIN FIO2 28%. ALL SAFETY MEASURES IN PLACE, WILL CONTINUE TO CLOSELY MONITOR AND FOLLOW POC.
--- NOTE | 2022-02-15 07:15 | NUR ---
RECEIVED BEDSIDE REPORT FROM DIANA LONGORIA RN FOR CONTINUITY OF CARE. PT IS SUPINE IN THE BED, AAOX0, EYES OPEN, PERRLA, TRACKS, NONVERBAL. TRACH TO T PIECE, 6L, FIO2 28%. SR ON THE MONITOR. BOWEL SOUNDS ACTIVE. NO GTUBE IN PLACE, SITE COVERED WITH GAUZE. INCONTINENT OF BOWEL AND BLADDER. PURE WICK IN PLACE, TO CONTINUOUS SUCTION. RIJ CENTRAL LINE TLC IN PLACE, INFUSING TPN AT 80 ML/H, D5NS TKO AT 5 ML/H, LEVOPHED ON STANDBY. PT WEARING COOLING BLANKET, RECTAL TEMP 99.6 F AT THIS TIME. SKIN INTACT. SOFT WRIST RESTRAINT TO R HAND. ORDER TO BE RENEWED AT 0448 TOMORROW AM. ALL SAFETY PRECAUTIONS MET. NO S/S INJURY AT THIS TIME. ON STANDARD PRECAUTIONS. INITIAL ASSESSMENT COMPLETE, WILL CONTINUE TO CLOSELY MONITOR.
--- NOTE | 2022-02-15 07:15 | NUR ---
GAVE REPORT TO DAY SHIFT NURSE, ENDORSED CARE. PT IN NO ACUTE DISTRESS.
[2022-02-15] MEDS: APIXABAN 2.5 MG TAB GT SCH ×2 (08:44→20:58)
[2022-02-15] MEDS: ASPIRIN 325 MG TAB GT SCH (08:44)
[2022-02-15] MEDS: PANTOPRAZOLE 40 MG INJ VIAL IVP SCH ×2 (08:48→22:14)
[2022-02-15] MEDS: OLANZapine 2.5 MG TAB GT SCH ×2 (08:48→20:57)
--- NOTE | 2022-02-15 09:45 | NUR ---
JÚNIOR GUTHRIE SWABBED GTUBE SITE FOR WOUND CULTURE. JÚNIOR WALKED SPECIMEN TO LAB.
--- NOTE | 2022-02-15 10:00 | NUR ---
SPOKE WITH DR ALEMAN ON THE PHONE. SAYS IF PT BP IS STABLE THROUGH 1200 TODAY, HE WILL PUT DOWNGRADE ORDERS.
--- NOTE | 2022-02-15 10:06 | NUR ---
(02/15/22) RD FOLLOW UP COMPLETED PLEASE REFER TO NUTRITION PROGRESS NOTE UNDER CARE ACTIVITY FOR ESTIMATED NUTRITION NEEDS. RD RECOMMENDATIONS: 1. CONTINUE TPN PER PHARMACY TOLERATED 2. WHEN/IF GTUBE REPLACED AND MEDICALLY APPROPRIATE, RECOMMEND VITAL WITH A GOAL RATE OF 55 ML/HR -FWF: 100 ML Q6H OR PER MD -START AT 10 ML/HR AND INCREASE TOLERATED -WILL PROVIDE 1584 KCAL AND 99 GM PROTEIN, MEETING 90% OF ESTIMATED KCAL AND 100% OF ESTIMATED PROTEIN NEEDS; ADEQUATE 2. RD TO FOLLOW-UP 2-3 DAYS, HIGH RISK DICKSON BAILEY, MS, RDN
--- NOTE | 2022-02-15 14:30 | NUR ---
PT MOTHER VISITING AT BEDSIDE. UPDATED REGARDING PT CONDITION. ALL QUESTIONS ANSWERED AT THIS TIME.
[2022-02-15 17:54] LABS: APPEARANCE,URINE CLEAR (CLEAR); BILIRUBIN,URINE NEGATIVE (NEGATIVE); BLOOD, URINE NEGATIVE (NEGATIVE); COLOR,URINE YELLOW (YELLOW); LEUKOCYTE ESTERASE ,URINE NEGATIVE (NEGATIVE); NITRITE, URINE NEGATIVE (NEGATIVE); PH,URINE 5.5 (5.0-9.0); UGLUCOSE NEGATIVE (NEGATIVE)
--- NOTE | 2022-02-15 20:20 | NUR ---
REPORT GIVEN TO [facility] NURSE KAREEN, PT TRANSFERRED IN STABLE CONDITION TO [facility] ROOM 111A, PT IN NO ACUTE DISTRESS. RT AT BEDSIDE ASSESSING PT.
--- NOTE | 2022-02-15 20:25 | NUR ---
PER ICU NURSE DONT GIVE ELIQUIS AND LOVENOX BEC . OF HEMATURIA - WILL ENDORSE
[2022-02-15] MEDS: DEXTROSE IV SCH ×4 (20:56)
[2022-02-15] MEDS: MULTIVITAMIN IV SCH ×4 (20:56)
[2022-02-15] MEDS: AMINO ACIDS IV SCH ×4 (20:56)
[2022-02-15] MEDS: [UNRECOGNIZED DRUG - OTHER] IV SCH ×4 (20:56)
[2022-02-15] MEDS: ATORVASTATIN 80 MG TAB GT SCH (20:57)
--- NOTE | 2022-02-15 22:27 | NUR ---
AWAKE , O2 SAT 100% , BP 117 / 70 , NM 112 . WILL CONT. TO MONITOR - DIAPER FULLY SOAKED W/ URINE - WILL CLEAN UP .
[2022-02-16] VITALS (7 sets, daily range): BP systolic 100–168; BP diastolic 62–80
[2022-02-16] MEDS: BLOOD GLUCOSE MONITORING 1 DEV DEV FS SCH ×5 (01:00→23:52)
[2022-02-16] MEDS: GAUZE TP SCH ×3 (01:29→23:52)
--- NOTE | 2022-02-16 04:00 | NUR ---
ROUNDS - O2 SAT 100 % , THERE IS PROBE IN THE RECTUM OF THE PT - PER ICU NURSE THAT IS PROBE FOR COOLING BLANKET - PER ICU NURSE REMOVE IT .
[2022-02-16] MEDS: MEROPENEM 500 MG in NACL 0.9% 50 ML IV SCH ×3 (06:00→23:30)
--- NOTE | 2022-02-16 06:00 | NUR ---
ROUNDS , O2 SAT 100 %
--- NOTE | 2022-02-16 07:30 | NUR ---
RECEIVED REPORT FROM DRY CHAIN OPERATOR NURSE. PT STABLE
--- NOTE | 2022-02-16 07:35 | NUR ---
ENDORSED - PT - STABKLE , AWAKE - PROBE REMOVE - COMPLETE AND INTACT - ENDORSE TO JINA WOF FOR BLEEDING
[2022-02-16 07:58] LABS: BASOPHILS % (AUTO) 0.5 % (0.0-2.0); EOSINOPHILS # (AUTO) 0.3 K/uL (0-0.4); EOSINOPHILS % (AUTO) 3.7 % (0.0-4.0); LYMPHOCYTES # (AUTO) 1.8 K/uL (2.5-16.5); LYMPHOCYTES % (AUTO) 19.8 % (20.5-51.1); MEAN CORPUSCULAR HEMOGLOBIN 26 pg (27-31); MEAN CORPUSCULAR HGB CONC 32 g/dL (33-37); MEAN CORPUSCULAR VOLUME 81.8 fL (80-94); MONOCYTES # (AUTO) 0.8 K/uL (0.8-1.0); MONOCYTES % (AUTO) 8.7 % (1.7-9.3); NEUTROPHILS # (AUTO) 5.9 K/uL (1.8-7.7); NEUTROPHILS % (AUTO) 67.3 % (42.2-75.2); PLATELET COUNT (AUTO) 377 K/uL (140-450); RED BLOOD CELL COUNT(AUTO) 3.79 MIL/uL (4.20-5.40); RED CELL DISTRIBUTION WIDTH 15.2 % (11.6-13.7); WHITE BLOOD COUNT (AUTO) 8.8 K/uL (4.8-10.8)
[2022-02-16 08:10] LABS: ANION GAP 7.7 (8-16); CARBON DIOXIDE 28.9 mmol/L (21-32); CREATININE 0.7 mg/dL (0.6-1.3); POTASSIUM 3.6 mmol/L (3.5-5.1)
--- NOTE | 2022-02-16 08:11 | NUR ---
PER ICU NURSE CLEM, GIVE MEDS PER G TUBE - G TUBE ANY MORE . Addendum: 02/16/22 at 0813 by Lawanda Fontenot RN THE ABOVE NURSE'S NOTE IS TIME ERROR ENTRY , INSTEAD OF 2024- ASHLEIGH
--- NOTE | 2022-02-16 08:23 | NUR ---
PT TRANSFERRING TO GI LAB FOR COLONOSCOPY. PT CLEANED AND CHANGED. RT TREATMENT COMPLETED. PUREWICK REMOVED AND DISCARDED DO TO SOILAGE. NO S/S OF DISTRESS. CONSENT SIGNED AND IN OR NURSES POSSESSION Addendum: 02/16/22 at 1317 by Malika Simons RN RN DISREGARD LAST NOTE
[2022-02-16 08:34] LABS: MAGNESIUM 1.7 mg/dL (1.8-2.4); PHOSPHORUS 3.6 mg/dL (2.5-4.9)
[2022-02-16] MEDS: ASPIRIN 325 MG TAB GT SCH (09:00)
[2022-02-16] MEDS: APIXABAN 2.5 MG TAB GT SCH ×2 (09:00→20:34)
[2022-02-16] MEDS: OLANZapine 2.5 MG TAB GT SCH ×2 (09:00→20:35)
[2022-02-16] MEDS: PANTOPRAZOLE 40 MG INJ VIAL IVP SCH ×2 (09:30→21:02)
--- NOTE | 2022-02-16 09:30 | NUR ---
PT NOT RECEIVING GT MEDICATIONS. GTUBE NO LONGER IN PLACE. TPN RUNNING PER MD ORDER. IV MEDICATIONS ADMINISTERED. CALL LIGHT IN REACH. ALL SAFETY MEASURES IN PLACE. PT STILL ATTEMPTING TO GRAB STAFF AND PULL LINES WHEN RESTRAINT IS REMOVED.
--- NOTE | 2022-02-16 13:21 | NUR ---
PT WAS CLEANED AND CHANGED. PT SUCTIONED. PT STILL ATTEMPTING TO PULL TUBING WHEN RELEASED. CALL LIGHT IN REACH. ALL SAFETY MEASURES IN PLACE. NO S/S OF DISTRESS
--- NOTE | 2022-02-16 19:32 | NUR ---
ENDORSED PT TO MS SQL DBA NURSE
--- NOTE | 2022-02-16 19:35 | NUR ---
RECEIVED REPORT FROM AM NURSE. REVIEWED DAY'S EVENTS AND DISCUSSED POC FOR CONTINUITY OF CARE.
[2022-02-16] MEDS ORDERED: MAG SULF 2000 MG/WATER PREMIX 50 ML IV ONE (20:00)
--- NOTE | 2022-02-16 20:10 | NUR ---
DR ALEMAN NOTIFIED PT DOES NOT HAVE A G- TUBE. HE DOES NOT WANT TO CHANGE MED ADMINISTRATION.WILL WAIT FOR NEW GT PLACEMENT. DID ORDER IV MAGNESIUM FOR SUPPLEMENTATION MG =1.7. WILL ADMINISTER MEDICATION. PT CONTINUES WITH TRACH TO T-BAR O2 6L. HS MEDS: IVP PROTONIX AND IVPB MERREM GIVEN.
[2022-02-16] MEDS: ATORVASTATIN 80 MG TAB GT SCH (20:35)
[2022-02-16] MEDS: AMINO ACIDS IV SCH ×4 (23:00)
[2022-02-16] MEDS: MULTIVITAMIN IV SCH ×4 (23:00)
[2022-02-16] MEDS: DEXTROSE IV SCH ×4 (23:00)
[2022-02-16] MEDS: [UNRECOGNIZED DRUG - OTHER] IV SCH ×4 (23:00)
[2022-02-17] VITALS: BP 133/78
--- NOTE | 2022-02-17 00:30 | NUR ---
VSS. BS= 98 NO COVERAGE. R IJ TRIPLE LUMEN PICC LINE FLUSHED AND PATENT ALL PORTS. INC OF URINE AND BM. SKIN CARE RENDERED WITH ASSIST OF THREE PEOPLE. RT SUCTIONED PT OF THICK CREAMY YELLOW TINGED SPUTUM. ALL SAFETY MEASURES IN PLACE. WILL CONTINUE TO MONITOR
[2022-02-17 04:00] VITALS: BP 141/92
[2022-02-17] MEDS: MEROPENEM 500 MG in NACL 0.9% 50 ML IV SCH ×2 (04:32→13:06)
--- NOTE | 2022-02-17 06:00 | NUR ---
PT REPOSITIONED AND SKIN CARE RENDERED FOR URINE INCONTINENCE. BS= 148 NO INSULIN COVERAGE NEEDED.
[2022-02-17] MEDS: BLOOD GLUCOSE MONITORING 1 DEV DEV FS SCH ×3 (06:28→17:59)
[2022-02-17 07:10] LABS: ANION GAP 9.9 (8-16); CARBON DIOXIDE 28.8 mmol/L (21-32); CREATININE 0.7 mg/dL (0.6-1.3); POTASSIUM 3.7 mmol/L (3.5-5.1)
[2022-02-17 07:16] LABS: BASOPHILS % (AUTO) 0.4 % (0.0-2.0); EOSINOPHILS # (AUTO) 0.3 K/uL (0-0.4); EOSINOPHILS % (AUTO) 3.3 % (0.0-4.0); HEMATOCRIT 27.9 % (36-48); HEMOGLOBIN 9.2 g/dL (12.0-16.0); LYMPHOCYTES # (AUTO) 1.8 K/uL (2.5-16.5); LYMPHOCYTES % (AUTO) 16.9 % (20.5-51.1); MEAN CORPUSCULAR HEMOGLOBIN 27 pg (27-31); MEAN CORPUSCULAR HGB CONC 33 g/dL (33-37); NEUTROPHILS # (AUTO) 7.5 K/uL (1.8-7.7); NEUTROPHILS % (AUTO) 70.4 % (42.2-75.2); PLATELET COUNT (AUTO) 444 K/uL (140-450); RED BLOOD CELL COUNT(AUTO) 3.45 MIL/uL (4.20-5.40); RED CELL DISTRIBUTION WIDTH 14.7 % (11.6-13.7); WHITE BLOOD COUNT (AUTO) 10.6 K/uL (4.8-10.8)
[2022-02-17 07:22] LABS: MAGNESIUM 1.9 mg/dL (1.8-2.4)
--- NOTE | 2022-02-17 07:25 | NUR ---
ENDORSED REPORT TO AM SHIFT NURSE. REVIEWED NIGHT'S EVENTS AND DISCUSSED POC FOR CONTINUITY OF CARE.
--- NOTE | 2022-02-17 07:30 | NUR ---
RECEIVED REPORT FROM HEDGE FUND ACCOUNTANT NURSE.
[2022-02-17] MEDS: APIXABAN 2.5 MG TAB GT SCH (09:00)
[2022-02-17] MEDS: ASPIRIN 325 MG TAB GT SCH (09:00)
[2022-02-17] MEDS: OLANZapine 2.5 MG TAB GT SCH (09:00)
[2022-02-17] MEDS: PANTOPRAZOLE 40 MG INJ VIAL IVP SCH (09:38)
--- NOTE | 2022-02-17 09:41 | NUR ---
SPOKE WITH MD, GTUBE LOCATION CLOSING. THIN SCAB OVER ENTRANCE. YELLOWISH PUS WITH LIGHT PUSHING AROUND SITE. MD TO SEE PT FOR NEW GTUBE PLACEMENT
[2022-02-17] MEDS ORDERED: CA C IV (10:26)
[2022-02-17] MEDS ORDERED: Tpn Per Pharmacy MC (10:26)
[2022-02-17] MEDS ORDERED: MERO500V16 IV (10:26)
--- NOTE | 2022-02-17 11:51 | NUR ---
SPOKE TO DR WEST. PT HAS ORDER FOR DC. INFORMED MD THAT DR WILSON CALLED ABOUT GTUBE PLACEMENT. CALLED DR WILSON AND SPOKE WITH HIM AND DR WEST. PT WILL DC ON TPN AND BE SEEN FOR GTUBE PLACEMENT OUTPATIENT. ESSENCE CARDENAS, CHARGE NURSE, AND BOTH MDS ARE AWARE.
[2022-02-17 12:00] VITALS: BP 129/87
[2022-02-17] MEDS: GAUZE TP SCH (13:06)
--- NOTE | 2022-02-17 14:24 | NUR ---
ENDORSED PT TO [facility] NURSE ALFREDA. PT WILL BE PICKED UP AT 1600 VIA [facility]. GOING TO ROOM 20A. PT CLEANED AND CHANGED. CENTRAL LINE DRESSING CHANGED. PT TOLERATED WELL. RT AT BEDSIDE TO ASSIST DUE TO [facility]IJ LOCATION
--- NOTE | 2022-02-17 16:38 | NUR ---
SPOKE TO MD AND FACILITY. MD TO ORDER IV MEDICATIONS FOR USE UNTIL NEW GTUBE INSERTION. PT BILINGUAL ADMINISTRATIVE ASSISTANT TIME CHANGED TO 1700
--- NOTE | 2022-02-17 17:55 | NUR ---
[place] [facility] [place] [facility] [facility] NO S/S OF DISTRESS. PERSONAL BELONGINGS IN POSSESSION.
== END 2022-02-17 17:53 | DRG 720 ==
LOC: MED 18:10 → MIC 20:59 → MTU 02-15 20:20
PROVIDERS: ADMIT Family Medicine; ATTEND Family Medicine
PROC: 02H633Z Insertion of Infusion Device into Right Atrium, Percutaneous Approach (ICD-10-PCS; principal; 2022-02-11)
PROC: B548ZZA Ultrasonography of Superior Vena Cava, Guidance (ICD-10-PCS; 2022-02-11)
DX: A41.9 Sepsis, unspecified organism (principal); J96.20 Acute and chronic respiratory failure, unspecified whether with hypoxia or hypercapnia; N17.0 Acute kidney failure with tubular necrosis; J69.0 Pneumonitis due to inhalation of food and vomit; R65.21 Severe sepsis with septic shock; K65.8 Other peritonitis; D63.8 Anemia in other chronic diseases classified elsewhere; K94.23 Gastrostomy malfunction; I48.91 Unspecified atrial fibrillation; E11.22 Type 2 diabetes mellitus with diabetic chronic kidney disease; N39.0 Urinary tract infection, site not specified; F31.9 Bipolar disorder, unspecified; E66.01 Morbid (severe) obesity due to excess calories; N18.31 Chronic kidney disease, stage 3a; I12.9 Hypertensive chronic kidney disease with stage 1 through stage 4 chronic kidney disease, or unspecified chronic kidney disease; Z20.822 Contact with and (suspected) exposure to COVID-19; Z74.01 Bed confinement status; Z86.19 Personal history of other infectious and parasitic diseases; Z88.0 Allergy status to penicillin; Z88.2 Allergy status to sulfonamides; I69.354 Hemiplegia and hemiparesis following cerebral infarction affecting left non-dominant side; Z93.0 Tracheostomy status; Z91.09 Other allergy status, other than to drugs and biological substances; Z68.42 Body mass index [BMI] 45.0-49.9, adult; Z79.2 Long term (current) use of antibiotics; Z79.82 Long term (current) use of aspirin; Z79.899 Other long term (current) drug therapy
CPT/HCPCS: 36415; 36600; 71045; 74018; 80048; 80053; 80076; 80202; 81001; 81003; 82533; 82550; 82553; 82803; 82948; 83605; 83735; 83880; 84100; 84478; 84484; 85025; 85610; 85730; 87040; 87070; 87075; 87081; 87086; 87186; 87205; 89220; 93005; 96365; 96367; 96368; 96375; 99291; A9153; C9113; J1815; J1956; J2001; J2060; J2185; J2270; J2543; J3370; J3475; J3480; J3490; J7030; J7060; Q0092; Q9967